=== PATIENT | female | born 1950 | race Caucasian/White ===

== ENCOUNTER 2017-03-12 11:31 | Inpatient (IN) | payer MEDICARE, OTHER ==
[2017-03-08 12:09] LABS: BASOPHILS 0.7 %; BASOPHILS ABSOLUTE 0.04 10/3/uL (0.0-0.16); EOSINOPHILS 5.7 %; EOSINOPHILS ABSOLUTE 0.32 10/3/uL (0.0-0.53); HEMATOCRIT 38.3 % (36.0-48.0); HEMOGLOBIN 12.6 g/dL (12.0-16.0); IMMATURE GRANULOCYTES 0.2 %; IMMATURE GRANULOCYTES ABSOLUTE 0.01 10/3/uL (0.0-0.11); LYMPHOCYTES 28.5 %; LYMPHOCYTES ABSOLUTE 1.61 10/3/uL (0.67-4.30); MANUAL DIFF NO %; MEAN CORPUS HGB CONC 32.9 g/dL (32.0-36.0); MEAN CORPUSCULAR VOLUME 97.2 fL (80-100); MEAN PLATELET VOLUME 10.4 fL (9.2-13.0); MONOCYTES 7.1 %; NEUTROPHILS 57.8 %; NEUTROPHILS ABSOLUTE 3.26 10/3/uL (2.02-8.40); PLATELET COUNT 177 10/3/uL (150-400); RBC DISTRIBUTION WIDTH 13.1 % (12.0-16.0); RED CELL COUNT 3.94 10/6/uL (4.0-5.6); WHITE BLOOD CELLS 5.6 10/3/uL (4.5-10.5)
[2017-03-08 12:14] LABS: INTERNATIONAL NORMAL RATI 1.2 UNITS (-); PROTIME (NOT ORD) 14.9 SEC (12.0-14.5)
[2017-03-08 12:24] LABS: BUN (BLOOD UREA NITROGEN) 20 MG/DL (6-23); CALCIUM, SERUM 8.9 MG/DL (8.5-10.4); CHLORIDE, SERUM 108 MMOL/L (96-112); CO2 (CARBON DIOXIDE) 28 MMOL/L (24-34); CREATININE 1.63 MG/DL (0.55-1.02); GFR AFRICAN AMERICAN 37 ML/MIN (>=60); GFR NON AFRICAN AMERICAN 32 ML/MIN (>=60); GLUCOSE, SERUM 106 MG/DL (60-99); POTASSIUM, SERUM 4.2 MMOL/L (3.5-5.3); SODIUM, SERUM 143 MMOL/L (135-148)
--- NOTE | ~2017-03-12 | OP ---
Record Of Operation [facility] [address] [place]. [address] NAME: KAHLIL BENITES : 48 STATUS : DIS IN PAT#: [id number] AGE: 66 ADM/REG DATE : 03/12/17 MR#: [id number] REPORT SERV DATE: 03/19/17 DICTATED BY: AFBRICIO CHAPMAN DATE: 03/19/17 REPORT STATUS : Draft TRANSCRIBED BY: MODL DATE: 03/19/17 DATE OF PROCEDURE: 03/12/2017 PREOPERATIVE DIAGNOSIS: Left common carotid artery high-grade obstruction. POSTOPERATIVE DIAGNOSES: 1. 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 2. Fibromuscular dysplasia, mid to distal ICA approximately 50% narrowing. 3. Saccular abdominal aortic aneurysm. PROCEDURE PERFORMED: 1. Arch aortogram, left common carotid artery catheterization and angiography. 2. Primary stent, proximal left internal carotid artery 7 x 40 Cordis Precise stent over a 5 mm distal embolic protection filter with post stent angioplasty 5 x 4 balloon. ANESTHESIA: Local MAC. COMPLICATIONS: None. INDICATION FOR PROCEDURE: Secondary to this very pleasant 66-year-old female presenting with evidence of a high-grade internal carotid artery obstruction secondary to medical comorbidities was candidate for endovascular repair. Risks and benefits were discussed. Consent was obtained. DETAILS OF PROCEDURE: The patient was brought to the endovascular operating room, placed in supine position, prepped and draped in routine sterile fashion with attention to the bilateral groin region. The right femoral arteries were catheterized with micropuncture needle followed by a wire and a sheath. A catheter was then advanced into the arch of the aorta and a 30 degree [place] arch arteriogram was performed. The innominate and the left common carotid artery and left subclavian were noted to be widely patent. The left common carotid artery was cannulated with a glidewire and catheter. The catheter was then advanced into the common carotid artery. An arteriogram confirmed evidence of the kinking and stenosis at the origin of the internal carotid artery of approximately 80%. Secondary to this, after this post endarterectomy vessel, a stent was indicated, a 7 x 40 was then brought on the field. A 5 mm AngioGuard was then passed into the patient and into the internal carotid artery above the level of the fibromuscular dysplasia distally. 5000 units of heparin was given and allowed to circulate. Filter was deployed. The stent was then passed into position and deployed into the internal carotid artery. This adequately opened the vessel with addition of a 5 mm angioplasty proximally. The filter was then removed. The fibroid dysplasia appeared to have no greater than 50% stenosis, and was avoided the remainder of the procedure. The patient was neurologically intact throughout the entire procedure. Wires, catheters, and sheaths were then removed. An AP abdominal aortogram was then performed prior to complete closure, to define the abdominal aorta, there was evidence of a fairly large saccular aneurysm protruding to the left. I think this will ultimately need to be addressed with CT imaging and possible repair. At this point, wires, catheter, and sheaths were removed. The groin was then closed with Angio-Seal. The patient tolerated Record Of [address] [place]. [address] NAME: KAHLIL BENITES : 48 STATUS : DIS IN PAT#: [id number] AGE: 66 ADM/REG DATE : 03/12/17 MR#: [id number] REPORT SERV DATE: 03/19/17 DICTATED BY: FABRICIO CHAPMAN DATE: 03/19/17 REPORT STATUS : Draft TRANSCRIBED BY: JOSE DATE: 03/19/17 the procedure. CL/JOSE Fabricio Chapman M.D. / [id number] CC: Tanika Phillips M.D.
[~2017-03-12 11:31] MED LIST: ASAB PO; ASAEC PO; BRILINTA90 MG PO; CLARITIN NAS; COREG3 PO; DEMA10T PO; EFFIENT10 PO; ELIQUIS 5 MG TAB5 MG PO; FISH-EPA1000 MG PO; KLOR-CON 1010 MEQ PO; LIPITOR80 MG PO; MELATONIN1 M1 PO; MELATONIN5 M1 PO; MIRALAX POWDER1 PKT PO; MUCINEX600 MG PO; NITROSTAT0.4 MG SL; NORCO1 TA1 PO; PCET PO; PLAVIX PO; PROTONIX PO; SOMNAPURE PO; SPIRO25 PO; WELLXL150 PO; ZYRTEC ALLGY10 MG PO; [UNRECOGNIZED DRUG - OTHER]
[2017-03-13 03:32] LABS: BASOPHILS 0.1 %; BASOPHILS ABSOLUTE 0.01 10/3/uL (0.0-0.16); EOSINOPHILS 1.3 %; HEMATOCRIT 36.9 % (36.0-48.0); HEMOGLOBIN 12.8 g/dL (12.0-16.0); IMMATURE GRANULOCYTES 0.1 %; IMMATURE GRANULOCYTES ABSOLUTE 0.01 10/3/uL (0.0-0.11); LYMPHOCYTES ABSOLUTE 0.55 10/3/uL (0.67-4.30); MEAN CORPUSCULAR HEMOGLOB 33.2 pg (26.0-34.0); MEAN CORPUSCULAR VOLUME 95.6 fL (80-100); MEAN PLATELET VOLUME 10.1 fL (9.2-13.0); MONOCYTES 4.1 %; MONOCYTES ABSOLUTE 0.32 10/3/uL (0.21-1.20); NEUTROPHILS 87.4 %; NEUTROPHILS ABSOLUTE 6.85 10/3/uL (2.02-8.40); PLATELET COUNT 170 10/3/uL (150-400); RED CELL COUNT 3.86 10/6/uL (4.0-5.6); WHITE BLOOD CELLS 7.8 10/3/uL (4.5-10.5)
[2017-03-13 03:34] LABS: MANUAL DIFF NO %; MEAN CORPUS HGB CONC 34.7 g/dL (32.0-36.0)
[2017-03-13 03:44] LABS: BUN (BLOOD UREA NITROGEN) 15 MG/DL (6-23); CALCIUM, SERUM 8.7 MG/DL (8.5-10.4); CHLORIDE, SERUM 109 MMOL/L (96-112); CO2 (CARBON DIOXIDE) 23 MMOL/L (24-34); GFR AFRICAN AMERICAN 54 ML/MIN (>=60); GFR NON AFRICAN AMERICAN 47 ML/MIN (>=60); GLUCOSE, SERUM 118 MG/DL (60-99); SODIUM, SERUM 139 MMOL/L (135-148)
== END 2017-03-13 12:45 | disposition home or self-care (01) | DRG 36 ==
LOC: SDC/OF 11:31 → CVICU 16:41
PROVIDERS: Specialist
PROC: 037L3DZ Dilation of Left Internal Carotid Artery with Intraluminal Device, Percutaneous Approach (ICD-10-PCS; principal; 2017-03-12 13:30)
DX: I65.21 Occlusion and stenosis of right carotid artery (principal); I10 Essential (primary) hypertension; I25.10 Atherosclerotic heart disease of native coronary artery without angina pectoris; I25.2 Old myocardial infarction; Z95.5 Presence of coronary angioplasty implant and graft; Z79.01 Long term (current) use of anticoagulants; Z87.891 Personal history of nicotine dependence; Z86.711 Personal history of pulmonary embolism; Z88.5 Allergy status to narcotic agent; Z88.8 Allergy status to other drugs, medicaments and biological substances; Z79.899 Other long term (current) drug therapy
CPT/HCPCS: 36221; 37215; 71020; 75625; 80048; 83735; 85025; 85610; 93005; A9270-GY; C1760; C1769; C1876; C1884; C1887; C1894; J0690; J2250; J2370; J3010; Q9967